=== PATIENT | male | born 1980 | race Caucasian/White ===

== ENCOUNTER 2021-06-11 09:08 | Day surgery (SDC) | payer OTHER ==
--- NOTE | 2021-06-11 08:15 | HP ---
DATE OF SURGERY: 06/11/2021 HISTORY OF PRESENT ILLNESS: The patient is a 40 year-old who is taking some omeprazole for reflux, has increased symptoms, increased belching and sour stomach, some loose stools. Given his increased reflux even on proton pump inhibitor, I feel the patient is in need of upper endoscopy for further evaluation. PAST MEDICAL HISTORY: Diabetes. Hypothyroidism. Gout. PAST SURGICAL HISTORY: Cholecystectomy in the past. He had been on Cholestyramine for that. Colonoscopy in the past. No upper endoscopy according to the patient. MEDICATIONS: Janumet. Levothyroxine. Allopurinol. Cholestyramine powder. ALLERGIES: NKDA. FAMILY HISTORY: Negative in regards to this problem. SOCIAL HISTORY: One pack per day smoker, denies alcohol abuse. REVIEW OF SYSTEMS: Fourteen systems reviewed. No chest pain or palpitations. Other systems negative or noncontributory as above and per preadmission questionnaire. PHYSICAL EXAMINATION: GENERAL: No acute distress. HEENT: Sclerae nonicteric. NECK: No JVD. CHEST: Equal excursion, nonlabored breathing. CVS: Regular rate and rhythm. ABDOMEN: Soft. No peritoneal signs. EXTREMITIES: No significant edema. NEURO: Alert, oriented, moving extremities symmetrically. PSYCH: Appropriate mood and affect. IMPRESSION: Increased reflux, needs upper endoscopy possible biopsy. Risks and benefits explained in detail including but not limited to bleeding or infection, risk of bowel injury or perforation possibly requiring open procedure, risk of missed or nondiagnosis or incomplete exam possibly requiring other studies or procedures. General risk of anesthesia or sedation, possibility of inability to diagnose the etiology of his symptoms. He understands and agrees to the planned procedure, will proceed with EGD possible biopsy as an outpatient.
[2021-06-11] MEDS ORDERED: Lactated Ringers 1,000 ML IV SCH (09:30)
[2021-06-11] MEDS ORDERED: Xylocaine-Mpf 2% 5 Ml Vial ONE (11:39)
[2021-06-11] MEDS ORDERED: DIPRIVAN 200 MG/20 ML IV ONE ×2 (11:39→11:44)
[2021-06-11] MEDS ORDERED: Versed 2 MG/2 ML Injection ONE (11:40)
[2021-06-11 13:03] VITALS: BP 137/74; PULSE 77; O2SAT 95
--- NOTE | 2021-06-11 15:00 | OP ---
SURGERY DATE/TIME: 06/11/2021 1143 PREOPERATIVE DIAGNOSIS: Increased reflux despite medical management, proton pump inhibitor. POSTOPERATIVE DIAGNOSES: 1) Short segment distal esophagitis, path pending. 2) Minimal to mild gastritis. 3) Small collection of submucosal nodule in the antrum (biopsy of mucosa overlying the top of it). PROCEDURES: 1) EGD with cold biopsy of small bowel to evaluate for celiac sprue. 2) Cold biopsy of the antrum to evaluate for Helicobacter pylori. 3) Cold biopsy of mucosa overlying antral submucosal nodule. 4) Multiple cold biopsies of very short segment of a few millimeters of question distal gastroesophagitis distal esophagus. SURGEON: Nawaf Villarreal M.D. CERTIFIED INDOOR ENVIRONMENTALIST: Germain Oglesby M.D. ANESTHESIA: MAC. ESTIMATED BLOOD LOSS: Minimal. INDICATIONS: As noted above. Risks and benefits explained in detail and not limited to and consent obtained. DESCRIPTION OF PROCEDURE AND FINDINGS: The patient is taken to the endoscopy room. MAC anesthesia introduced. After official time out and no disagreement with planned procedure, a bite block positioned. Video gastroscope easily passed down through the through the patent pylorus to the third portion of the duodenum. Third, second and first portion of duodenum question of a little bit of a little bit of flattening of folds. Cold biopsies taken to evaluate for celiac sprue to rule out other etiologies of his symptoms. Scope pulled back into the stomach. He had some mild gastric erythema and possibly some minimal to mild gastritis. There was no evidence of any ulcers. Cold biopsy taken to evaluate for Helicobacter pylori. Good hemostasis noted. Otherwise he did have a little bit of a submucosal nodule in the antrum whether lipoma or other etiology is unclear. Cold biopsy is taken of the mucosa overlying the top of that. Good hemostasis noted. On retroflex he did have some food debris which limited evaluation of the fundus. There did not appear to be any evidence of obstructing mass but he did have some food debris, questionable NPO status versus gastroparesis unclear. The scope pulled back. There were no signs of any large hiatal hernia. The scope is straightened. Gastroesophageal junction about 40 cm. There is a short segment of 2.5 to 3 mm segment of some distal esophageal erythematous streaks consistent with possible early mild reflux esophagitis, path is pending to evaluate for metaplasia or other etiology. Cold biopsies were taken. Several biopsies of the small fingerlettes that were less than 2 to 3 mm in length. Good hemostasis noted. The patient tolerated the procedure well. Findings discussed with the family out in the waiting area. I will see him back in the office next week to go over the results.
== END 2021-06-11 13:20 | disposition home or self-care (01) ==
LOC: SDC 09:08
PROVIDERS: ATTEND Surgery
DX: K20.90 Esophagitis, unspecified without bleeding (principal); K29.70 Gastritis, unspecified, without bleeding; K31.A0 Gastric intestinal metaplasia, unspecified; E11.9 Type 2 diabetes mellitus without complications; Z79.899 Other long term (current) drug therapy
CPT/HCPCS: 82947; 88305; J2250; J2704

== ENCOUNTER 2022-03-11 09:20 | Day surgery (SDC) | payer OTHER ==
--- NOTE | 2022-03-11 07:52 | HP ---
DATE OF SURGERY: 03/11/2022 HISTORY OF PRESENT ILLNESS: The patient is a 41-year-old presented with history of gastroparesis in the past by [facility]. Burping and reflux. Follow up change in bowel habits. He is in need of EGD and colonoscopy for further evaluation. PAST MEDICAL HISTORY: Gastroesophageal reflux disease as well as gastroparesis. Hypothyroidism. Gout. PAST SURGICAL HISTORY: Cholecystectomy. MEDICATIONS: Janumet, levothyroxine, Cholestyramine. ALLERGIES: ZOLOFT. LATEX. BAND-AID. FAMILY HISTORY: Dad with cancer. SOCIAL HISTORY: No smoking or alcohol abuse. REVIEW OF SYSTEMS: Fourteen systems reviewed. No chest pain or palpitations. Other systems negative or noncontributory as above and per preadmission questionnaire. PHYSICAL EXAMINATION: GENERAL: No acute distress. HEENT: Sclerae nonicteric. NECK: No JVD. CHEST: Equal excursion, nonlabored breathing. CVS: Regular rate and rhythm. ABDOMEN: Soft. No peritoneal signs. EXTREMITIES: No significant edema. NEURO: Alert, oriented, moving extremities symmetrically. RECTAL: Deferred timed to endoscopy exam. PSYCH: Appropriate mood and affect. IMPRESSION: Submucosal density question whether lipoma in the stomach as well as change in bowel habits. He is in need of EGD and colonoscopy for evaluation. Risks and benefits explained in detail including but not limited to bleeding or infection, risk of bowel injury or perforation, risk of missed or nondiagnosis or incomplete exam possibly requiring barium enema, other studies or procedures. General risk of anesthesia or sedation, will proceed with EGD and colonoscopy as an outpatient. He understands if irritable bowel syndrome or gastroparesis he will need follow up with GI whether [facility] or other medical physicians of the GI tract. Will proceed with EGD and colonoscopy as an outpatient.
[2022-03-11] MEDS ORDERED: Lactated Ringers 1,000 ML IV SCH (10:00)
[2022-03-11] MEDS ORDERED: DIPRIVAN 200 MG/20 ML IV ONE ×2 (12:31→12:45)
[2022-03-11] MEDS ORDERED: Versed 2 MG/2 ML Injection ONE (12:31)
[2022-03-11] MEDS ORDERED: Lactated Ringers 1,000 ML IV ONE (12:57)
[2022-03-11 13:53] VITALS: BP 119/76; PULSE 79; O2SAT 98
--- NOTE | 2022-03-11 15:14 | OP ---
SURGERY DATE/TIME: 03/11/2022 1231 PREOPERATIVE DIAGNOSES: 1) History of submucosal density in the past in the stomach. 2) History of change in bowel habits. 3) Need for follow up upper endoscopy as well as colonoscopy. 4) History of gastroparesis in the past. POSTOPERATIVE DIAGNOSES: 1) Minimal to mild gastritis. 2) Small gastric polyp. 3) Very short segment of distal esophagitis. 4) Colon polyp. 5) Limited bowel prep with large amount of liquidy semisolid stool limiting exam for small lesions. PROCEDURES: 1) EGD with cold biopsy of small bowel to evaluate for celiac sprue. 2) Cold biopsy of antrum to evaluate for Helicobacter pylori. 3) Cold biopsy of gastric polyp. 4) Cold biopsy very short segment of distal esophagitis. 5) Colonoscopy to terminal ileum. 6) Retrograde Ileoscopy. 7) Random cold biopsies of ileum to evaluate for microscopic ileitis. 8) Random cold biopsies of colon to evaluate for microscopic colitis. 9) Hot biopsy polypectomy small early polyp versus hyperplastic lesion ileocecal valve. 10) Hot biopsy polypectomy small sigmoid colon polyp. 11) Hot biopsy polypectomy small rectal polyp x2. SURGEON: Dr. Nawaf Villarreal. ANESTHESIA: MAC. ESTIMATED BLOOD LOSS: Minimal. INDICATIONS: As noted above. Risks and benefits explained in detail and not limited to and consent obtained. DESCRIPTION OF PROCEDURE AND FINDINGS: The patient is taken to the endoscopy room. MAC anesthesia introduced. After official time out and no disagreement with planned procedure, bite block positioned. Video gastroscope easily passed down the esophagus through the patent pylorus. Duodenum fairly unremarkable. Cold biopsies taken to evaluate for celiac sprue. Good hemostasis noted. Scope pulled back in the stomach and it had some minimal to mild gastritis. Cold biopsy taken to evaluate for Helicobacter pylori. Small gastric polyp in the fundus removed with cold biopsy forceps. On retroflex there is no evidence of any large hiatal hernia. The patient did have some liquidy food particles in the stomach. He has history of gastroparesis in the past per past history. Scope pulled back gastroesophageal junction about 40cm. He had short segment of distal esophagitis a few millimeters. Cold biopsy taken. Good hemostasis noted. The remainder of the esophagus grossly unremarkable. Attention was then turned to colonoscopy. Digital rectal exam did not reveal any rectal masses. Video colonoscope inserted and passed up through the tortuous sigmoid, descending, transverse, ascending colon around to the cecum and up into the terminal ileum. The terminal ileum grossly unremarkable but given his change in bowel habits cold biopsy taken to evaluate for microscopic ileitis. Scope then pulled back. Appendiceal orifice and valve were photo documented. There was a small early 2 mm or less early polyp versus hyperplastic lesion on the valve itself that was removed with hot biopsy forceps. Good hemostasis noted. Scope pulled back slowly and carefully over the next eight minutes through the colon stopping to suction a large amount of liquidy stool that limited the exam for very small lesions. There were no signs of any large polyps, masses or obstructing lesions. There was a small early polyp versus hyperplastic lesion in the sigmoid colon removed with hot biopsy forceps with brief bursts of cautery. Good hemostasis noted. The scope pulled back to the rectum. Two small early polyps versus hyperplastic lesions removed with hot biopsy forceps with brief bursts of cautery. Good hemostasis noted. There were no signs of any large polyps, masses or obstructing lesions. No gross inflammatory changes. Random cold biopsies had been taken in the ileum to evaluate for microscopic colitis. Random cold biopsies had been taken in the colon to evaluate for microscopic colitis. The patient tolerated the procedure well. There was no family in the waiting room.
== END 2022-03-11 14:11 | disposition home or self-care (01) ==
LOC: SDC 09:20
PROVIDERS: ATTEND Surgery
DX: K29.70 Gastritis, unspecified, without bleeding (principal); R19.4 Change in bowel habit; Z80.9 Family history of malignant neoplasm, unspecified; Z87.19 Personal history of other diseases of the digestive system; E11.9 Type 2 diabetes mellitus without complications; K31.7 Polyp of stomach and duodenum; K20.90 Esophagitis, unspecified without bleeding; K63.5 Polyp of colon; K62.1 Rectal polyp
CPT/HCPCS: 82947; J2250; J2704